=== PATIENT | male | born 1980 | race Caucasian/White ===

== ENCOUNTER 2025-07-28 08:43 | Day surgery (SDC) | payer BC ==
[2025-07-28] MEDS: Lactated Ringers 1,000 ML IV SCH (08:15)
[~2025-07-28 08:43] MED LIST: Propofol 200 MG/20 ML SDV ONE
[2025-07-28] MEDS ORDERED: Propofol 200 MG/20 ML SDV ONE (08:49)
[2025-07-28] MEDS ORDERED: Lactated Ringers 1,000 ML IV SCH (09:30)
[2025-07-28 10:10] VITALS: BP 101/77; PULSE 74
== END 2025-07-28 09:55 | disposition home or self-care (01) ==
LOC: MW.SDS 08:43
PROVIDERS: ATTEND Surgery
DX: Z12.11 Encounter for screening for malignant neoplasm of colon (principal); K64.4 Residual hemorrhoidal skin tags; K64.8 Other hemorrhoids; I10 Essential (primary) hypertension; E78.00 Pure hypercholesterolemia, unspecified; Z80.8 Family history of malignant neoplasm of other organs or systems; Z79.899 Other long term (current) drug therapy; Z87.891 Personal history of nicotine dependence; Z86.0100 Personal history of colon polyps, unspecified
CPT/HCPCS: 45378; J2003; J2704; J7120